=== PATIENT | male | born 1940 | race Asian ===

== ENCOUNTER → 2018-10-08 | Outpatient (CLI) | payer MEDICARE ==
[2018-10-08 14:55] LABS: CREATININE 1.1 mg/dL (0.5-1.5)
== END | disposition home or self-care (01) ==
LOC: LAB 14:15
PROVIDERS: ATTEND Otolaryngology Plastic Surgery within the Head & Neck
DX: H90.3 Sensorineural hearing loss, bilateral (principal)
CPT/HCPCS: 36415; 82565; 84520

== ENCOUNTER → 2018-10-17 | Outpatient (CLI) | payer MEDICARE ==
[~2018-10-17] MED LIST: GADODIAMIDE 10 MMOL/20 ML ML IV ONE
== END | disposition home or self-care (01) ==
LOC: RAH 14:05
PROVIDERS: ATTEND Otolaryngology Plastic Surgery within the Head & Neck
DX: H70.93 Unspecified mastoiditis, bilateral (principal); H90.3 Sensorineural hearing loss, bilateral
CPT/HCPCS: 70553 ×2; A9579

== ENCOUNTER → 2021-06-02 | Outpatient (CLI) | payer MEDICARE | END | disposition home or self-care (01) | LOC: RAH 12:35 | PROVIDERS: ATTEND Internal Medicine Hematology & Oncology | DX: I82.622 Acute embolism and thrombosis of deep veins of left upper extremity (principal); M79.602 Pain in left arm; M25.512 Pain in left shoulder; N40.0 Benign prostatic hyperplasia without lower urinary tract symptoms; E86.0 Dehydration; E78.2 Mixed hyperlipidemia; M87.88 Other osteonecrosis, other site; M10.00 Idiopathic gout, unspecified site | CPT/HCPCS: 93971 ==

== ENCOUNTER 2024-03-27 08:38 | Day surgery (SDC) | payer MEDICARE ==
[2024-03-27] VITALS (11 sets, daily range): BP systolic 108–133; BP diastolic 61–73; PULSE 67–74; RESP 15–18
[~2024-03-27] VITALS: Ht 167.6 cm; Wt 73.0 kg
[~2024-03-27 08:38] MED LIST changes: +AMOX1TAB16 PO; +APIX2.5T PO; +ATOR20TA65 PO; +DILT-36 PO; -GADODIAMIDE 10 MMOL/20 ML ML IV ONE
[2024-03-27] MEDS: 0.9%NACL 1000ML 1,000 ML IV ONE (11:31)
[2024-03-27] MEDS ORDERED: PROPOFOL 10 MG/ML 20ML VIAL IV ONE (11:55)
== END 2024-03-27 13:10 | disposition home or self-care (01) ==
LOC: DAH 08:38 → ENDO 08:38
PROVIDERS: ATTEND Internal Medicine Gastroenterology
DX: R13.12 Dysphagia, oropharyngeal phase (principal); K21.9 Gastro-esophageal reflux disease without esophagitis; K29.50 Unspecified chronic gastritis without bleeding; K57.30 Diverticulosis of large intestine without perforation or abscess without bleeding; C44.329 Squamous cell carcinoma of skin of other parts of face; K59.00 Constipation, unspecified; E11.9 Type 2 diabetes mellitus without complications; Z72.89 Other problems related to lifestyle; Z91.041 Radiographic dye allergy status; Z86.010 Personal history of colon polyps; Z87.891 Personal history of nicotine dependence; Z79.899 Other long term (current) drug therapy; Z98.890 Other specified postprocedural states; Z80.0 Family history of malignant neoplasm of digestive organs
CPT/HCPCS: 43239; 82948 ×2; J7030 ×2; J2704; A4620; A4215 ×2; A4223; A4222; A4221; A4663; A4606; J3490